=== PATIENT | female | born 1945 | race Caucasian/White ===

== ENCOUNTER 2024-05-02 12:44 | Inpatient (IN) | payer MEDICARE, OTHER ==
[~2024-05-02] VITALS: Ht 188 cm; Wt 52.2 kg
[2024-05-02] MEDS: HYDROMORPHONE 1 MG/1 ML DISP.SYRIN IV ONE (13:15)
[2024-05-02 13:38] LABS: BASOPHILS % (AUTO) 0.4 % (0.0-2.0); EOSINOPHILS # (AUTO) 0.1 K/uL (0.0-0.7); EOSINOPHILS % (AUTO) 0.5 % (0.0-7.0); HEMOGLOBIN 10.5 g/dL (10.9-14.3); LYMPHOCYTES % (AUTO) 9.4 % (20.5-51.5); MEAN CORPUSCULAR HEMOGLOBIN 29.6 uug (24.7-32.8); MEAN CORPUSCULAR HGB CONC 33 g/dL (32.3-35.6); MEAN CORPUSCULAR VOLUME 90.5 fL (75.5-95.3); MONOCYTES # (AUTO) 1.6 K/uL (0.1-1.30); MONOCYTES % (AUTO) 15.7 % (0.0-11.0); NEUTROPHILS # (AUTO) 7.6 K/uL (1.8-8.9); PLATELET COUNT (AUTO) 291 K/uL (179-408); RED BLOOD CELL COUNT(AUTO) 3.54 MIL/uL (3.63-4.92); WHITE BLOOD COUNT (AUTO) 10.3 K/uL (3.8-11.8)
[2024-05-02 13:45] LABS: DIFFERENTIAL COMMENT 1
[2024-05-02] MEDS ORDERED: ONDANSETRON 4 MG/2 ML VIAL ONE (13:50)
[2024-05-02 13:54] LABS: ALANINE AMINOTRANSFERASE 6 U/L (14-59); ALBUMIN 2.1 g/dL (3.4-5.0); ALKALINE PHOSPHATASE 105 U/L (50-136); ASPARTATE AMINOTRANSFERASE 12 U/L (15-37); BILIRUBIN,DIRECT 0.1 mg/dL (0.0-0.2); BILIRUBIN,TOTAL 0.5 mg/dL (0.2-1.0); CALCIUM 8.7 mg/dL (8.5-10.1); CARBON DIOXIDE 20 mmol/L (21-32); CHLORIDE 104 mmol/L (98-107); CREATININE 1.7 mg/dL (0.6-1.3); GLUCOSE 100 mg/dL (74-106); SODIUM SERUM 137 mmol/L (136-145); TOTAL PROTEIN, SERUM 6.1 g/dL (6.4-8.2); UREA NITROGEN, BLOOD 27 mg/dL (7-18)
[2024-05-02 14:43] LABS: BAND % (MANUAL) 17 % (0-10); LYMPHOCYTES % (MANUAL) 10 % (20-40); METAMYELOCYTES % 1 % (0-1); MONOCYTES % (MANUAL) 19 % (2-10); NEUTROPHILS % (MANUAL) 53 % (42-75); PLATELET ESTIMATE ADEQUATE
[2024-05-02] MEDS: ONDANSETRON 4 MG/2 ML VIAL IV ONE (15:20)
[2024-05-02] MEDS: IV NORMAL SALINE 1000 ML BAG IV ONE (15:21)
[2024-05-02] MEDS ORDERED: VANCOMYCIN IV 0 ML ONE (16:49)
[2024-05-02] MEDS ORDERED: METRONIDAZOLE 500 MG/NS 100ML 100 ML IV ONE ×2 (16:50→23:17)
[2024-05-02] MEDS: METRONIDAZOLE 500 MG/NS 100 ML PIGGYBACK IV ONE (16:50)
[2024-05-02] MEDS: VANCOMYCIN IV 750 MG in IV DEXTROSE 5% 150 ML IV ONE (18:28)
[2024-05-02] MEDS ORDERED: ONDANSETRON 4 MG/2 ML VIAL IV PRN (20:30)
[2024-05-02] MEDS ORDERED: ACETAMINOPHEN 650 MG SUPP.RECT RC PRN (20:30)
[2024-05-02] MEDS ORDERED: MORPHINE SULFATE 4 MG/1 ML DISP.SYRIN IV PRN (20:30)
[2024-05-02] MEDS: METRONIDAZOLE 500 MG/NS 100ML 500 MG in PREMIXED 1 EACH IV SCH (23:14)
[2024-05-03 00:30] VITALS: BP 100/52; TEMP 98.8; O2SAT 95
[2024-05-03] MEDS: IV D5/ 0.9% NACL 1,000 ML IV PRN (01:07)
[2024-05-03] MEDS ORDERED: CIPROFLOXACIN IV 200 ML IV ONE (03:33)
[2024-05-03] MEDS: CIPROFLOXACIN IV 400 MG in PREMIXED 1 EACH IV SCH (03:54)
[2024-05-03 06:00] VITALS: BP 110/60; TEMP 98.5; O2SAT 95
[2024-05-03] MEDS ORDERED: METRONIDAZOLE 500 MG/NS 100ML 100 ML IV ONE (06:18)
[2024-05-03 07:23] LABS: BASOPHILS % (AUTO) 0.3 % (0.0-2.0); EOSINOPHILS % (AUTO) 0.2 % (0.0-7.0); HEMATOCRIT 27.6 % (31.2-41.9); HEMOGLOBIN 9.4 g/dL (10.9-14.3); LYMPHOCYTES % (AUTO) 9.6 % (20.5-51.5); MEAN CORPUSCULAR HEMOGLOBIN 29.8 uug (24.7-32.8); MEAN CORPUSCULAR HGB CONC 34 g/dL (32.3-35.6); MEAN CORPUSCULAR VOLUME 87.5 fL (75.5-95.3); MONOCYTES # (AUTO) 1.7 K/uL (0.1-1.30); MONOCYTES % (AUTO) 15.5 % (0.0-11.0); NEUTROPHILS # (AUTO) 7.9 K/uL (1.8-8.9); NEUTROPHILS % (AUTO) 74.4 % (38.5-71.5); PLATELET COUNT (AUTO) 314 K/uL (179-408); RED BLOOD CELL COUNT(AUTO) 3.16 MIL/uL (3.63-4.92); RED CELL DISTRIBUTION WIDTH 14.7 % (12.3-17.7); WHITE BLOOD COUNT (AUTO) 10.7 K/uL (3.8-11.8)
[2024-05-03 07:46] LABS: DIFFERENTIAL COMMENT 1
[2024-05-03 07:48] LABS: ALANINE AMINOTRANSFERASE 6 U/L (14-59); ALBUMIN 1.8 g/dL (3.4-5.0); ALKALINE PHOSPHATASE 95 U/L (50-136); ASPARTATE AMINOTRANSFERASE < 5 U/L (15-37); BILIRUBIN,TOTAL 0.3 mg/dL (0.2-1.0); CALCIUM 7.8 mg/dL (8.5-10.1); CARBON DIOXIDE 22 mmol/L (21-32); CHLORIDE 102 mmol/L (98-107); CREATININE 1.6 mg/dL (0.6-1.3); GLUCOSE 131 mg/dL (74-106); MAGNESIUM 1.5 mg/dL (1.8-2.4); PHOSPHOROUS 2.8 mg/dL (2.5-4.9); POTASSIUM 3.9 mmol/L (3.5-5.1); SODIUM SERUM 134 mmol/L (136-145); TOTAL PROTEIN, SERUM 5.3 g/dL (6.4-8.2); UREA NITROGEN, BLOOD 31 mg/dL (7-18)
[2024-05-03 08:00] VITALS: BP 127/61; TEMP 98.5; O2SAT 95
[2024-05-03] MEDS: PANTOPRAZOLE SODIUM 40 MG VIAL IV SCH (09:00)
[2024-05-03 09:01] LABS: IRON, SERUM 11 ug/dL (50-175)
[2024-05-03 11:30] VITALS: BP 120/64; TEMP 98.4; O2SAT 96
[2024-05-03 13:52] LABS: LYMPHOCYTES % (MANUAL) 0 % (20-40); NEUTROPHILS % (MANUAL) 0 % (42-75)
[2024-05-03] MEDS ORDERED: ONDA4TAB5 PO (14:03)
[2024-05-03] MEDS ORDERED: DICL100G31 TP (14:03)
[2024-05-03] MEDS ORDERED: TIZA-180 PO (14:03)
[2024-05-03] MEDS ORDERED: MULT-225 PO (14:03)
[2024-05-03] MEDS ORDERED: IBUP-2314 PO (14:03)
[2024-05-03] MEDS ORDERED: CITA10TA9 PO (14:03)
[2024-05-03] MEDS ORDERED: LIDO1ADH43 TP (14:03)
[2024-05-03] MEDS ORDERED: MELA3CAP2 PO (14:03)
[2024-05-03] MEDS ORDERED: CHOL200059 PO (14:03)
[2024-05-03] MEDS ORDERED: MIRT7.5T10 PO (14:03)
[2024-05-03] MEDS ORDERED: MELATONIN 3 MG TABLET PO PRN (15:45)
[2024-05-03] MEDS: MAGNESIUM SULFATE/D5W 100 ML IV SCH (16:16)
[2024-05-03 18:10] VITALS: BP 112/62; TEMP 97; O2SAT 98
[2024-05-03 20:38] VITALS: BP 105/55; TEMP 98.5; O2SAT 95
[2024-05-03] MEDS: MIRTAZAPINE 15 MG TABLET PO SCH (22:11)
[2024-05-04 04:43] VITALS: BP 106/57; TEMP 98.2; O2SAT 97
[2024-05-04 07:57] LABS: CALCIUM 7.7 mg/dL (8.5-10.1); CARBON DIOXIDE 21 mmol/L (21-32); CHLORIDE 104 mmol/L (98-107); CREATININE 1.5 mg/dL (0.6-1.3); GLUCOSE 129 mg/dL (74-106); MAGNESIUM 2.2 mg/dL (1.8-2.4); PHOSPHOROUS 2.6 mg/dL (2.5-4.9); POTASSIUM 3.7 mmol/L (3.5-5.1); SODIUM SERUM 136 mmol/L (136-145); UREA NITROGEN, BLOOD 28 mg/dL (7-18)
[2024-05-04 08:04] LABS: BASOPHILS % (AUTO) 0.2 % (0.0-2.0); EOSINOPHILS % (AUTO) 0.3 % (0.0-7.0); HEMATOCRIT 27.9 % (31.2-41.9); HEMOGLOBIN 9.3 g/dL (10.9-14.3); LYMPHOCYTES # (AUTO) 1.1 K/uL (0.8-4.8); LYMPHOCYTES % (AUTO) 9.7 % (20.5-51.5); MEAN CORPUSCULAR HEMOGLOBIN 29.2 uug (24.7-32.8); MEAN CORPUSCULAR HGB CONC 33 g/dL (32.3-35.6); MEAN CORPUSCULAR VOLUME 87.5 fL (75.5-95.3); MONOCYTES # (AUTO) 1.9 K/uL (0.1-1.30); MONOCYTES % (AUTO) 15.9 % (0.0-11.0); NEUTROPHILS # (AUTO) 8.7 K/uL (1.8-8.9); NEUTROPHILS % (AUTO) 73.9 % (38.5-71.5); PLATELET COUNT (AUTO) 304 K/uL (179-408); RED BLOOD CELL COUNT(AUTO) 3.19 MIL/uL (3.63-4.92); RED CELL DISTRIBUTION WIDTH 14.7 % (12.3-17.7); WHITE BLOOD COUNT (AUTO) 11.8 K/uL (3.8-11.8)
[2024-05-04 08:13] LABS: DIFFERENTIAL COMMENT 1
[2024-05-04] MEDS: CITALOPRAM 10 MG TABLET PO SCH (09:16)
[2024-05-04 11:35] VITALS: BP 108/57; TEMP 98.8; O2SAT 96
[2024-05-04 11:35] LABS: NEUTROPHILS % (MANUAL) 74 % (42-75)
[2024-05-04 11:54] LABS: LYMPHOCYTES % (MANUAL) 10 % (20-40); MONOCYTES % (MANUAL) 16 % (2-10)
[2024-05-04 11:55] LABS: PLATELET ESTIMATE ADEQUATE
[2024-05-04] MEDS: LIDOCAINE 5% PATCH TD PRN (13:48)
[2024-05-04 16:00] VITALS: BP 116/56; TEMP 98.4; O2SAT 96
[2024-05-04 19:58] VITALS: BP 98/52; TEMP 97.8; O2SAT 97
[2024-05-05] MEDS: CIPROFLOXACIN IV 400 MG in PREMIXED 1 EACH IV SCH (03:20)
[2024-05-05 05:22] VITALS: BP 125/53; TEMP 97.3; O2SAT 96
[2024-05-05 07:28] LABS: BASOPHILS % (AUTO) 0.2 % (0.0-2.0); EOSINOPHILS # (AUTO) 0.1 K/uL (0.0-0.7); EOSINOPHILS % (AUTO) 0.6 % (0.0-7.0); HEMATOCRIT 26.5 % (31.2-41.9); HEMOGLOBIN 9.1 g/dL (10.9-14.3); LYMPHOCYTES # (AUTO) 0.8 K/uL (0.8-4.8); MEAN CORPUSCULAR HEMOGLOBIN 30.1 uug (24.7-32.8); MEAN CORPUSCULAR HGB CONC 34 g/dL (32.3-35.6); MONOCYTES % (AUTO) 10.6 % (0.0-11.0); NEUTROPHILS # (AUTO) 7.7 K/uL (1.8-8.9); NEUTROPHILS % (AUTO) 80.6 % (38.5-71.5); PLATELET COUNT (AUTO) 289 K/uL (179-408); RED BLOOD CELL COUNT(AUTO) 3.02 MIL/uL (3.63-4.92); RED CELL DISTRIBUTION WIDTH 14.7 % (12.3-17.7); WHITE BLOOD COUNT (AUTO) 9.5 K/uL (3.8-11.8)
[2024-05-05 07:45] LABS: DIFFERENTIAL COMMENT 1
[2024-05-05] MEDS: PROTEIN SUPPLEMENT (PROSTAT) 30 ML LIQUID PO SCH (08:00)
[2024-05-05 09:06] LABS: CALCIUM 7.4 mg/dL (8.5-10.1); CARBON DIOXIDE 18 mmol/L (21-32); CHLORIDE 105 mmol/L (98-107); CREATININE 1.3 mg/dL (0.6-1.3); GLUCOSE 137 mg/dL (74-106); MAGNESIUM 1.9 mg/dL (1.8-2.4); PHOSPHOROUS 2.2 mg/dL (2.5-4.9); POTASSIUM 3.2 mmol/L (3.5-5.1); SODIUM SERUM 136 mmol/L (136-145); UREA NITROGEN, BLOOD 22 mg/dL (7-18)
[2024-05-05 09:24] LABS: HIV-1 p24 ANTIGEN REACTIVE (NONREACTIVE); HIV-1/2 ANTIBODY NON REACTIVE (NONREACTIVE)
[2024-05-05 11:35] VITALS: BP 122/56; TEMP 98.3; O2SAT 96
[2024-05-05 16:00] VITALS: BP 116/56; TEMP 98.9; O2SAT 97
[2024-05-05] MEDS ORDERED: NEUTRA PHOS PACKET PO ONE (17:30)
[2024-05-05 19:00] VITALS: BP 112/49; TEMP 98.1; O2SAT 96
[2024-05-06 06:00] VITALS: BP 120/54; TEMP 98.1; O2SAT 95
[2024-05-06] MEDS: PANTOPRAZOLE SODIUM 40 MG TABLET.DR PO SCH (06:13)
[2024-05-06 11:34] VITALS: BP 128/58; TEMP 98.4; O2SAT 98
[2024-05-06] MEDS ORDERED: METR500T PO (12:23)
[2024-05-06] MEDS ORDERED: CIPR-262 PO (12:23)
== END 2024-05-06 16:05 | DRG 871 ==
LOC: ER 12:44 → MEDSURG3 23:59
PROVIDERS: ADMIT Internal Medicine; ATTEND Internal Medicine
PROC: 05HF33Z Insertion of Infusion Device into Left Cephalic Vein, Percutaneous Approach (ICD-10-PCS; principal; 2024-05-02)
DX: A41.9 Sepsis, unspecified organism (principal); E43 Unspecified severe protein-calorie malnutrition; N17.0 Acute kidney failure with tubular necrosis; A04.9 Bacterial intestinal infection, unspecified; Z68.1 Body mass index [BMI] 19.9 or less, adult; N25.0 Renal osteodystrophy; G89.29 Other chronic pain; D50.9 Iron deficiency anemia, unspecified; R19.5 Other fecal abnormalities; R62.7 Adult failure to thrive; K80.20 Calculus of gallbladder without cholecystitis without obstruction; I70.0 Atherosclerosis of aorta; F32.A Depression, unspecified; G62.9 Polyneuropathy, unspecified; M15.9 Polyosteoarthritis, unspecified
CPT/HCPCS: 36415; 70030-TC; 71045; 82378; 83550; 83605; 83735; 84100; 85025; 87806; A4663; A6213; G0378; J0744; J1956; J2270; J2405; J2470; J3370; J3475; J3490; J7040; J7042